=== PATIENT | female | born 1960 | race Caucasian/White ===

== ENCOUNTER 2016-08-25 16:35 | Emergency (ER) | payer OTHER ==
[~2016-08-25] VITALS: Ht 162.6 cm; Wt 96.3 kg
[~2016-08-25 16:35] MED LIST: CYCL-259 PO; DIAZ5TAB PO; EMPA1TAB3 PO; FAMO-79 PO; GABA300C10 PO; HYDR-3144 PO; HYDR-882 PO; HYDR2TAB13 PO; METF10002 PO; METF100P3 PO; METF850T2 PO; METH4TAB2 PO; METH750T87 PO; OMEP-110 PO; ONDA4TAB10 PO; ONDA4TAB7 PO; OXYC-229 PO; OXYC5TAB3 PO; PROM25TA10 PO; SITA100T PO; TIZA4TAB9 PO; WILL BRING LIST
[2016-08-25] MEDS ORDERED: SODIUM CHLORIDE 0.9% 1,000ML IVBOLUS ONE (17:00)
[2016-08-25 17:05] LABS: HEMOGLOBIN 14.6 g/dL (11.7-16.4)
[2016-08-25 17:15] LABS: ASPARTATE AMINO TRANSFERASE 6 U/L (15-37); BLOOD UREA NITROGEN 13 mg/dL (7-18)
[2016-08-25] MEDS ORDERED: OXYcodone/APAP 5/325MG TABLET ONE (17:19)
[2016-08-25 17:25] LABS: IS PT STATUS REG ER OR PRE ER? YES
[2016-08-25] MEDS ORDERED: PLEASE ENTER HEIGHT AND WEIGHT MC SCH (17:30)
[2016-08-25] MEDS ORDERED: OXYcodone/APAP 5/325MG TABLET PO ONE (17:30)
[2016-08-25] MEDS ORDERED: KETOROLAC 30 MG/1 ML ONE (18:11)
[2016-08-25] MEDS ORDERED: KETOROLAC 30 MG/1 ML IVPush ONE (18:30)
[2016-08-25 18:49] LABS: HCG UR OBC PASS
[2016-08-25 19:35] VITALS: BP 108/68
== END 2016-08-25 19:38 | disposition home or self-care (01) ==
LOC: ED 19:00
DX: G43.909 Migraine, unspecified, not intractable, without status migrainosus (principal); Z87.891 Personal history of nicotine dependence; J44.9 Chronic obstructive pulmonary disease, unspecified; E11.9 Type 2 diabetes mellitus without complications
CPT/HCPCS: 36415; 70450; 71010; 80053; 81003; 81025; 84443; 84484; 85025; 93005; 96361; 96374; 99285; J1885; J7030

== ENCOUNTER → 2016-11-25 | Outpatient (CLI) | payer OTHER ==
[~2016-11-25] MED LIST changes: -HYDR2TAB13 PO; +HYDR2TAB29 PO; +INSULIN; +LEVO25TA4 PO; +OBIN1000 PO
== END | disposition home or self-care (01) ==
LOC: CFH 07:08
PROVIDERS: ATTEND Family Medicine
DX: M50.121 Cervical disc disorder at C4-C5 level with radiculopathy (principal); M48.02 Spinal stenosis, cervical region; Z98.890 Other specified postprocedural states; Z98.1 Arthrodesis status
CPT/HCPCS: 72050; 72141

== ENCOUNTER → 2016-12-15 | Outpatient (CLI) | payer OTHER ==
[~2016-12-15] MED LIST changes: +FENTANYL PF 100 MCG/2ML ONE; +MIDAZOLAM 1 MG/ML, 5ML ONE
== END | disposition home or self-care (01) ==
LOC: RAD 10:18 → EDSTATUS 11:00
PROVIDERS: ATTEND Family Medicine
DX: G43.909 Migraine, unspecified, not intractable, without status migrainosus (principal); Z98.1 Arthrodesis status
CPT/HCPCS: 70544; 99156; 99157; J2250; J3010

== ENCOUNTER → 2017-02-17 | Outpatient (CLI) | payer MEDICARE ==
[~2017-02-17] MED LIST changes: -HYDR-3144 PO; +HYDR-3245 PO; -OXYC-229 PO; +OXYC-307 PO
== END | disposition home or self-care (01) ==
LOC: RAD 09:11
PROVIDERS: ATTEND Family Medicine
DX: M48.06 Spinal stenosis, lumbar region (principal); M51.26 Other intervertebral disc displacement, lumbar region; M47.896 Other spondylosis, lumbar region; M47.897 Other spondylosis, lumbosacral region; M71.20 Synovial cyst of popliteal space [Baker], unspecified knee; M79.604 Pain in right leg; Z91.81 History of falling
CPT/HCPCS: 72148; 73721; 99156; 99157; J2250; J3010

== ENCOUNTER 2017-02-27 14:04 | Emergency (ER) | payer MEDICARE ==
[~2017-02-27] VITALS: Ht 162.6 cm; Wt 80.8 kg
[~2017-02-27 14:04] MED LIST changes: -FENTANYL PF 100 MCG/2ML ONE; -MIDAZOLAM 1 MG/ML, 5ML ONE
[2017-02-27] MEDS ORDERED: SODIUM CHLORIDE 0.9% 1,000 ML IV ONE (14:22)
[2017-02-27] MEDS ORDERED: MORPHINE SULFATE 4 MG/ML, 1ML IVPush PRN (14:30)
[2017-02-27] MEDS ORDERED: ONDANSETRON 2MG/ML, 2ML IVPush ONE (14:30)
[2017-02-27] MEDS ORDERED: SODIUM CHLORIDE 0.9% 1,000ML IVBOLUS ONE (14:30)
[2017-02-27] MEDS ORDERED: FAMOTIDINE 20 MG/2 ML IVP ONE (15:00)
[2017-02-27] MEDS ORDERED: MORPHINE SULFATE 4 MG/ML, 1ML ONE (15:06)
[2017-02-27] MEDS ORDERED: FAMOTIDINE 20 MG/2 ML ONE (15:06)
[2017-02-27] MEDS ORDERED: ONDANSETRON 2MG/ML, 2ML ONE (15:06)
[2017-02-27 15:17] LABS: HEMATOCRIT 36.6 % (34.6-47.8); HEMOGLOBIN 12.3 g/dL (11.7-16.4); WHITE BLOOD COUNT 7.3 x10^3/uL (3.4-10)
[2017-02-27 15:19] LABS: PATH.CAST-FLAG NOT PRESENT; SPERM-FLAG NOT PRESENT; SRC-FLAG NOT PRESENT; XTAL-FLAG NOT PRESENT; YLC-FLAG NOT PRESENT
[2017-02-27 15:29] LABS: ASPARTATE AMINO TRANSFERASE 10 U/L (15-37); BLOOD UREA NITROGEN 8 mg/dL (7-18)
[2017-02-27 15:35] VITALS: BP 94/63
[2017-02-27] MEDS ORDERED: OMNIPAQUE 350 MG/ML, 100ML BOTTLE ONE (16:24)
== END 2017-02-27 17:12 | disposition home or self-care (01) ==
LOC: ED 14:30
DX: R10.84 Generalized abdominal pain (principal)
CPT/HCPCS: 36415; 71010; 74177; 80053; 81001; 83605; 83690; 85025; 85610; 87086; 96361; 96374; 96375; 99285; J2405; J7030; Q9967; S0028

== ENCOUNTER → 2017-04-07 | Outpatient (CLI) | payer MEDICARE ==
[~2017-04-07] MED LIST changes: +OMNIPAQUE 350 MG/ML, 100ML BOTTLE ONE
== END | disposition home or self-care (01) ==
LOC: CFH 14:16
PROVIDERS: ATTEND Specialist
DX: I25.10 Atherosclerotic heart disease of native coronary artery without angina pectoris (principal); M51.34 Other intervertebral disc degeneration, thoracic region; K76.0 Fatty (change of) liver, not elsewhere classified; D73.89 Other diseases of spleen; Z98.1 Arthrodesis status; C18.4 Malignant neoplasm of transverse colon
CPT/HCPCS: 71260; 74177; Q9967

== ENCOUNTER 2018-01-07 06:14 | Emergency (ER) | payer OTHER ==
[~2018-01-07] VITALS: Ht 165.1 cm; Wt 72.7 kg
[~2018-01-07 06:14] MED LIST changes: -OMNIPAQUE 350 MG/ML, 100ML BOTTLE ONE
[2018-01-07] MEDS ORDERED: ONDANSETRON 2MG/ML, 2ML ONE (06:41)
[2018-01-07] MEDS ORDERED: LORazepam 2 MG/ML, 1ML ONE (06:41)
[2018-01-07] MEDS ORDERED: SODIUM CHLORIDE FLUSH 10ML SYR IVF ONE (07:00)
[2018-01-07] MEDS ORDERED: LORazepam 2 MG/ML, 1ML IVPush ONE (07:00)
[2018-01-07] MEDS ORDERED: ONDANSETRON 2MG/ML, 2ML IVPush ONE (07:00)
[2018-01-07] MEDS ORDERED: KETOROLAC 30 MG/1 ML ONE (07:47)
[2018-01-07] MEDS ORDERED: KETOROLAC 30 MG/1 ML IVPush ONE (08:00)
[2018-01-07 08:11] VITALS: BP 119/80
== END 2018-01-07 08:27 | disposition other institution (70) ==
LOC: ED 07:09
DX: S16.1XXA Strain of muscle, fascia and tendon at neck level, initial encounter (principal); M54.12 Radiculopathy, cervical region; I10 Essential (primary) hypertension; M19.90 Unspecified osteoarthritis, unspecified site; J44.9 Chronic obstructive pulmonary disease, unspecified; E11.65 Type 2 diabetes mellitus with hyperglycemia; Z97.10 Presence of artificial limb (complete) (partial), unspecified; F17.200 Nicotine dependence, unspecified, uncomplicated; X58.XXXA Exposure to other specified factors, initial encounter; Y93.89 Activity, other specified; Y92.89 Other specified places as the place of occurrence of the external cause; Y99.0 Civilian activity done for income or pay
CPT/HCPCS: 72125; 73030; 96374; 96375; 99284; J1885; J2060; J2405

== ENCOUNTER → 2018-01-11 | Outpatient (CLI) | payer OTHER ==
[~2018-01-11] MED LIST changes: +FENTANYL PF 100 MCG/2ML ONE; +MIDAZOLAM 1 MG/ML, 5ML ONE
== END | disposition home or self-care (01) ==
LOC: RAD 06:41
PROVIDERS: ATTEND Family Medicine
DX: M43.22 Fusion of spine, cervical region (principal); M48.02 Spinal stenosis, cervical region; M89.9 Disorder of bone, unspecified; R60.9 Edema, unspecified; R90.82 White matter disease, unspecified; S80.11XA Contusion of right lower leg, initial encounter; X58.XXXA Exposure to other specified factors, initial encounter; Y93.89 Activity, other specified; Y92.89 Other specified places as the place of occurrence of the external cause; Y99.8 Other external cause status
CPT/HCPCS: 70551; 72141; 73718; 73721; 99156; 99157; J2250; J3010

== ENCOUNTER 2018-02-10 11:20 | Emergency (ER) | payer OTHER ==
[~2018-02-10] VITALS: Ht 165.1 cm; Wt 71.3 kg
[~2018-02-10 11:20] MED LIST changes: -FENTANYL PF 100 MCG/2ML ONE; +METF850T10 PO; -METF850T2 PO; -MIDAZOLAM 1 MG/ML, 5ML ONE
[2018-02-10] MEDS ORDERED: KETOROLAC 30 MG/1 ML IM ONE (12:00)
[2018-02-10] MEDS ORDERED: KETOROLAC 30 MG/1 ML ONE (12:06)
[2018-02-10] MEDS ORDERED: HYDROcodone/APAP 5/325 TABLET ONE (14:55)
[2018-02-10] MEDS ORDERED: HYDROcodone/APAP 5/325 TABLET PO ONE (15:00)
[2018-02-10 15:10] VITALS: BP 132/78
== END 2018-02-10 15:47 | disposition home or self-care (01) ==
LOC: ED 14:19
DX: S42.202A Unspecified fracture of upper end of left humerus, initial encounter for closed fracture (principal); I10 Essential (primary) hypertension; E11.65 Type 2 diabetes mellitus with hyperglycemia; G43.909 Migraine, unspecified, not intractable, without status migrainosus; J44.9 Chronic obstructive pulmonary disease, unspecified; F17.200 Nicotine dependence, unspecified, uncomplicated; V43.52XA Car driver injured in collision with other type car in traffic accident, initial encounter; Y93.89 Activity, other specified; Y92.89 Other specified places as the place of occurrence of the external cause; Y99.8 Other external cause status
CPT/HCPCS: 71045; 72050; 72072; 73030; 93005; 96372; 99284; J1885

== ENCOUNTER 2018-02-12 19:15 | Emergency (ER) | payer OTHER ==
[~2018-02-12] VITALS: Ht 165.1 cm; Wt 69.8 kg
[2018-02-12] MEDS ORDERED: KETOROLAC 30 MG/1 ML ONE (19:54)
[2018-02-12] MEDS ORDERED: KETOROLAC 30 MG/1 ML IM ONE (20:00)
[2018-02-12 21:03] VITALS: BP 127/72
== END 2018-02-12 21:05 | disposition home or self-care (01) ==
LOC: ED 20:28
DX: S39.012A Strain of muscle, fascia and tendon of lower back, initial encounter (principal); M54.12 Radiculopathy, cervical region; E11.9 Type 2 diabetes mellitus without complications; J44.9 Chronic obstructive pulmonary disease, unspecified; M19.90 Unspecified osteoarthritis, unspecified site; G43.909 Migraine, unspecified, not intractable, without status migrainosus; I10 Essential (primary) hypertension; X58.XXXA Exposure to other specified factors, initial encounter; Y93.89 Activity, other specified; Y99.8 Other external cause status; Y92.89 Other specified places as the place of occurrence of the external cause
CPT/HCPCS: 72125; 96372; 99284; J1885

== ENCOUNTER 2019-05-09 16:30 | Emergency (ER) | payer OTHER, MEDICARE ==
[~2019-05-09] VITALS: Ht 165.1 cm; Wt 79.0 kg
[~2019-05-09 16:30] MED LIST changes: +HYDR-3653 PO; -HYDR-882 PO
[2019-05-09 16:32] VITALS: BP 160/88
--- NOTE | 2019-05-09 17:45 | NUR ---
PT HERE WITH C/O NECK AND BACK PAIN, STATES SHE HAS BEEN WAITING 3 MONTHS TO GET INTO A [facility], SHE CANNOT HANDLE THE PAIN ANY LONGER. ERMD IN TO [facility]
[2019-05-09] MEDS ORDERED: DEXAMETHASONE 4 MG/ML, 1ML ONE (17:50)
[2019-05-09] MEDS ORDERED: DEXAMETHASONE 4 MG/ML, 1ML IM ONE (18:00)
--- NOTE | 2019-05-09 18:00 | NUR ---
PT MEDICATED PER JUL, WILL THEN DC
== END 2019-05-09 18:30 | disposition home or self-care (01) ==
LOC: ED 16:54
DX: M54.16 Radiculopathy, lumbar region (principal); M54.14 Radiculopathy, thoracic region; I10 Essential (primary) hypertension; E11.9 Type 2 diabetes mellitus without complications; J44.9 Chronic obstructive pulmonary disease, unspecified; Z90.710 Acquired absence of both cervix and uterus; F17.200 Nicotine dependence, unspecified, uncomplicated
CPT/HCPCS: 93005; 96372; 99283; J1100

== ENCOUNTER 2019-05-14 16:19 | Emergency (ER) | payer OTHER, MEDICARE ==
[~2019-05-14] VITALS: Ht 165.1 cm; Wt 80.0 kg
[2019-05-14 16:32] VITALS: BP 144/86
--- NOTE | 2019-05-14 17:57 | NUR ---
XRAY AT BEDSIDE
--- NOTE | 2019-05-14 18:57 | NUR ---
PROVIDED WITH BK
== END 2019-05-14 19:00 | disposition home or self-care (01) ==
LOC: ED 17:49
DX: S93.491A Sprain of other ligament of right ankle, initial encounter (principal); J44.9 Chronic obstructive pulmonary disease, unspecified; E11.65 Type 2 diabetes mellitus with hyperglycemia; G43.909 Migraine, unspecified, not intractable, without status migrainosus; I10 Essential (primary) hypertension; Z90.710 Acquired absence of both cervix and uterus; X50.1XXA Overexertion from prolonged static or awkward postures, initial encounter; Y93.89 Activity, other specified; Y92.009 Unspecified place in unspecified non-institutional (private) residence as the place of occurrence of the external cause; Y99.8 Other external cause status
CPT/HCPCS: 99283

== ENCOUNTER 2019-05-25 14:02 | Emergency (ER) | payer OTHER, MEDICARE ==
[~2019-05-25] VITALS: Ht 165.1 cm; Wt 78.4 kg
--- NOTE | 2019-05-25 14:37 | NUR ---
PA EXAMINING PT
[2019-05-25] MEDS ORDERED: DIAZEPAM 5 MG TABLET ONE (14:49)
[2019-05-25] MEDS ORDERED: KETOROLAC 30 MG/1 ML ONE (14:49)
--- NOTE | 2019-05-25 14:59 | NUR ---
MEDICATED NOTED ON MAR
[2019-05-25] MEDS ORDERED: KETOROLAC 30 MG/1 ML IM ONE (15:00)
[2019-05-25] MEDS ORDERED: DIAZEPAM 5 MG TABLET PO ONE (15:00)
[2019-05-25] MEDS ORDERED: HYDROmorphone 1 MG/ML, 1ML INJ IM ONE (15:30)
[2019-05-25] MEDS ORDERED: HYDROmorphone 1 MG/ML, 1ML INJ ONE (15:38)
[2019-05-25] MEDS ORDERED: ONDANSETRON ODT 4 MG ONE (15:41)
--- NOTE | 2019-05-25 15:45 | NUR ---
ADDITIONALLY MEDICATED NOTED ON JUL FOR CONTINUED BACK PAIN
[2019-05-25] MEDS ORDERED: ONDANSETRON ODT 4 MG PO ONE (16:00)
[2019-05-25 16:20] VITALS: BP 98/62
--- NOTE | 2019-05-25 16:21 | NUR ---
PAIN IMPROVED WITH ADDITIONAL MEDICATION. VS UPDATED, DISCHARGE GIVEN. AMBULATED TO DISCHARGE WINDOW WITHOUT ASSITANCE.
== END 2019-05-25 16:24 | disposition home or self-care (01) ==
LOC: ED 16:13
DX: S39.012A Strain of muscle, fascia and tendon of lower back, initial encounter (principal); S29.012A Strain of muscle and tendon of back wall of thorax, initial encounter; M51.36 Other intervertebral disc degeneration, lumbar region; J44.9 Chronic obstructive pulmonary disease, unspecified; E11.9 Type 2 diabetes mellitus without complications; I10 Essential (primary) hypertension; Z90.710 Acquired absence of both cervix and uterus; X58.XXXA Exposure to other specified factors, initial encounter; Y93.89 Activity, other specified; Y92.89 Other specified places as the place of occurrence of the external cause; Y99.8 Other external cause status
CPT/HCPCS: 72110; 96372; 99283; J1170; J1885; Q0162

== ENCOUNTER → 2019-07-10 | Outpatient (CLI) | payer OTHER, MEDICARE ==
[~2019-07-10] MED LIST changes: +FENTANYL PF 100 MCG/2ML ONE; +FLUMAZENIL 0.1 MG/1 ML, 5ML ONE; +MIDAZOLAM 1 MG/ML, 5ML ONE; +NALOXONE 1 MG/ML, 2ML ONE
[2019-07-10 08:23] LABS: MICROSCOPIC NOT IND
[2019-07-10 08:24] LABS: BASOPHILS # (AUTO) 0.03 x10^3/uL (0-0.1); BASOPHILS % (AUTO) 1 % (0-1); EOSINOPHILS # (AUTO) 0.11 x10^3/uL (0-0.4); EOSINOPHILS % (AUTO) 2 % (1-7); LYMPHOCYTES # (AUTO) 1.52 x10^3/uL (1-3.4); LYMPHOCYTES % (AUTO) 26 % (22-44); MD NO; MEAN CORPUSCULAR HEMOGLOBIN 28.5 pg (27.0-34.8); MEAN CORPUSCULAR HGB CONC 33.3 g/dL (32.4-35.8); MEAN CORPUSCULAR VOLUME 85.8 fL (80-100); MEAN PLATELET VOLUME 8.5 fL (7.4-10.4); MONOCYTES # (AUTO) 0.39 x10^3/uL (0.2-0.8); MONOCYTES % (AUTO) 7 % (2-9); NEUTROPHILS # (AUTO) 3.74 x10^3/uL (1.8-6.8); NEUTROPHILS % (AUTO) 65 % (42-75); PLATELET COUNT 268 x10^3/uL (130-400); RED BLOOD COUNT 5.45 x10^6/uL (3.82-5.3); RED CELL DISTRIBUTION WIDTH 15.1 % (9.6-15.2)
[2019-07-10 08:34] LABS: ALBUMIN 3.6 g/dL (3.4-5.0); ANION GAP 5 mmol/L (5-15); CALCIUM 8.8 mg/dL (8.5-10.1); CHLORIDE 106 mmol/L (98-107)
[2019-07-10 08:47] LABS: ALANINE AMINOTRANSFERASE 25 U/L (12-78); ALKALINE PHOSPHATASE 89 U/L (45-117); BILIRUBIN,TOTAL 1.2 mg/dL (0.2-1.0); CHOL/HDL RATIO 3.1; CHOLESTEROL, TOTAL 181 mg/dL (140-239); CREATININE 0.79 mg/dL (0.55-1.02); HDL CHOL % 33 % (28-40); HDL CHOLESTEROL (DIRECT) 59 mg/dL (40-60); LDL CHOLESTEROL,CALCULATED 107 mg/dL (54-169); LDL/HDL RATIO 1.8 (0.5-3.0); TOTAL PROTEIN 7.2 g/dL (6.4-8.2); TRIGLYCERIDES 75 mg/dL (50-200); VLDL CHOLESTEROL 15 mg/dL (0-25)
== END | disposition home or self-care (01) ==
LOC: RAD 07:57
PROVIDERS: ATTEND Nurse Practitioner
DX: S46.211A Strain of muscle, fascia and tendon of other parts of biceps, right arm, initial encounter (principal); M75.101 Unspecified rotator cuff tear or rupture of right shoulder, not specified as traumatic; M48.061 Spinal stenosis, lumbar region without neurogenic claudication; M47.24 Other spondylosis with radiculopathy, thoracic region; M48.062 Spinal stenosis, lumbar region with neurogenic claudication; E11.9 Type 2 diabetes mellitus without complications; E03.9 Hypothyroidism, unspecified; F17.210 Nicotine dependence, cigarettes, uncomplicated; Z98.890 Other specified postprocedural states; Z85.038 Personal history of other malignant neoplasm of large intestine; Z79.899 Other long term (current) drug therapy; Z79.4 Long term (current) use of insulin; X58.XXXA Exposure to other specified factors, initial encounter; Y93.89 Activity, other specified; Y92.89 Other specified places as the place of occurrence of the external cause; Y99.8 Other external cause status
CPT/HCPCS: 36415; 73221; 80053; 80061; 81003; 82043; 83036; 84443; 85025; 99156; 99157; J2250; J3010; J2310

== ENCOUNTER 2019-07-14 11:05 | Day surgery (SDC) | payer OTHER, MEDICARE ==
[~2019-07-14] VITALS: Ht 167.6 cm; Wt 79.4 kg
[~2019-07-14 11:05] MED LIST changes: -FENTANYL PF 100 MCG/2ML ONE; -FLUMAZENIL 0.1 MG/1 ML, 5ML ONE; -MIDAZOLAM 1 MG/ML, 5ML ONE; -NALOXONE 1 MG/ML, 2ML ONE
[2019-07-14 11:32] VITALS: BP 125/90
[2019-07-14] MEDS ORDERED: BUPR1PAT7 TD (11:35)
[2019-07-14] MEDS ORDERED: SUCCINYLCHOLINE 20 MG/ML, 10ML ONE (13:08)
[2019-07-14] MEDS ORDERED: PROPOFOL 10 MG/ML, 20ML ONE (13:08)
[2019-07-14] MEDS ORDERED: ROCURONIUM 10 MG/ML,10ML ONE (13:08)
[2019-07-14] MEDS ORDERED: OXYcodone 5 MG/5 ML ORAL.SOL UDC PO PRN (15:00)
[2019-07-14] MEDS ORDERED: FENTANYL PF 100 MCG/2ML IV PRN (15:00)
[2019-07-14] MEDS ORDERED: hydrALAzine 20 MG/ML, 1ML IV PRN (15:00)
[2019-07-14] MEDS ORDERED: HYDROmorphone 2 MG/ML, 1ML IVPush PRN (15:00)
[2019-07-14] MEDS ORDERED: EPHEDRINE 50 MG/ML, 1ML IVPush PRN (15:00)
[2019-07-14] MEDS ORDERED: LORazepam 2 MG/ML, 1ML IVPush PRN (15:00)
[2019-07-14] MEDS ORDERED: ONDANSETRON 2MG/ML, 2ML IV PRN (15:00)
[2019-07-14] MEDS ORDERED: HALOPERIDOL 5 MG/ML IV PRN (15:00)
[2019-07-14] MEDS ORDERED: MIDAZOLAM 1 MG/ML, 2ML IV PRN (15:00)
[2019-07-14] MEDS ORDERED: ONDANSETRON ODT 8 MG PO PRN (15:00)
[2019-07-14] MEDS ORDERED: DIAZEPAM 5 MG/ML, 2ML IVPush PRN (15:00)
[2019-07-14] MEDS ORDERED: LABETALOL 5MG/ML, 20ML IV PRN (15:00)
[2019-07-14] MEDS ORDERED: ALBUTEROL SULFATE 2.5 MG/3 ML NPPB PRN (15:00)
[2019-07-14] MEDS ORDERED: ACETAMINOPHEN 325 MG TABLET PO PRN (15:00)
[2019-07-14] MEDS ORDERED: MEPERIDINE/PF 25MG/ML,1ML IVPush PRN (15:00)
[2019-07-14] MEDS ORDERED: DIPHENHYDRAMINE 50 MG/ML, 1ML IVPush PRN (15:00)
[2019-07-14] MEDS ORDERED: ONDANSETRON 2MG/ML, 2ML ONE (15:13)
[2019-07-14] MEDS ORDERED: HALOPERIDOL 5 MG/ML ONE (15:13)
== END 2019-07-14 15:55 | disposition home or self-care (01) ==
LOC: OUT 11:05 → EDSTATUS 14:15 → OUT 15:55
PROVIDERS: ATTEND Nurse Practitioner
DX: M47.24 Other spondylosis with radiculopathy, thoracic region (principal); M48.04 Spinal stenosis, thoracic region; M47.26 Other spondylosis with radiculopathy, lumbar region; M48.062 Spinal stenosis, lumbar region with neurogenic claudication; E11.9 Type 2 diabetes mellitus without complications; F17.210 Nicotine dependence, cigarettes, uncomplicated; Z79.890 Hormone replacement therapy; Z79.891 Long term (current) use of opiate analgesic; Z79.899 Other long term (current) drug therapy
CPT/HCPCS: 72146; 72148; 73221; 82962; J0330; J2405; J2704

== ENCOUNTER 2019-07-20 15:04 | Day surgery (SDC) | payer OTHER, MEDICARE ==
[~2019-07-20] VITALS: Ht 167.6 cm; Wt 78.4 kg
[2019-07-20 15:02] VITALS: BP 152/89
[~2019-07-20 15:04] MED LIST changes: +BUPR1PAT7 TD
[2019-07-20] MEDS ORDERED: methylPREDNISolone *ACETATE* 40 MG/ML ONE (15:10)
[2019-07-20] MEDS ORDERED: BUPIVACAINE/PF 0.5% ONE (15:10)
[2019-07-20] MEDS ORDERED: OXYC5CAP2 PO (15:28)
[2019-07-20] MEDS ORDERED: EMPA1TAB3 PO (15:28)
[2019-07-20] MEDS ORDERED: LACTATED RINGERS 1,000 ML IV ONE (15:52)
[2019-07-20] MEDS ORDERED: FENTANYL PF 100 MCG/2ML ONE (16:11)
[2019-07-20] MEDS ORDERED: MIDAZOLAM 1 MG/ML, 2ML ONE ×2 (16:12→16:38)
[2019-07-20] MEDS ORDERED: FENTANYL PF 100 MCG/2ML IV PRN (17:00)
[2019-07-20] MEDS ORDERED: MIDAZOLAM 1 MG/ML, 2ML IV PRN (17:00)
[2019-07-20] MEDS ORDERED: PROMETHAZINE 25 MG/ML, 1ML IV PRN (17:00)
[2019-07-20] MEDS ORDERED: OXYcodone 5 MG/5 ML ORAL.SOL UDC PO PRN (17:00)
[2019-07-20] MEDS ORDERED: ACETAMINOPHEN 325 MG TABLET PO PRN (17:00)
[2019-07-20] MEDS ORDERED: PROPOFOL 10 MG/ML, 20ML ONE (17:07)
[2019-07-20] MEDS ORDERED: ONDANSETRON 2MG/ML, 2ML ONE (17:07)
[2019-07-20] MEDS ORDERED: CEFAZOLIN 1,000 MG ONE (17:07)
[2019-07-20] MEDS ORDERED: DEXAMETHASONE 4 MG/ML, 1ML ONE (17:07)
[2019-07-20] MEDS ORDERED: OXYcodone 5 MG/5 ML ORAL.SOL UDC ONE (17:43)
== END 2019-07-20 19:26 | disposition home or self-care (01) ==
LOC: OR 15:04 → 4NE 18:17 → OR 19:26
PROVIDERS: ATTEND Orthopaedic Surgery Hand Surgery
DX: M65.331 Trigger finger, right middle finger (principal); M65.312 Trigger thumb, left thumb; E11.9 Type 2 diabetes mellitus without complications; F17.210 Nicotine dependence, cigarettes, uncomplicated; Z85.038 Personal history of other malignant neoplasm of large intestine; Z88.8 Allergy status to other drugs, medicaments and biological substances; Z79.84 Long term (current) use of oral hypoglycemic drugs; Z79.899 Other long term (current) drug therapy
CPT/HCPCS: 26055; 82962; J0690; J1030; J1100; J2250; J2405; J2704; J3010; J7120; G0378

== ENCOUNTER 2019-08-24 19:35 | Emergency (ER) | payer OTHER, MEDICARE ==
[~2019-08-24] VITALS: Ht 165.1 cm; Wt 76.4 kg
[~2019-08-24 19:35] MED LIST changes: +OXYC5CAP2 PO
[2019-08-24 19:39] VITALS: BP 138/95
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
[2019-08-24] MEDS ORDERED: SODIUM CHLORIDE 0.9% 1,000ML IVBOLUS ONE ×2 (20:30→21:30)
[2019-08-24] MEDS ORDERED: SODIUM CHLORIDE FLUSH 10ML SYR IVF ONE (20:30)
--- NOTE | 2019-08-24 20:46 | NUR ---
LAB AT BEDSIDE
[2019-08-24 21:01] LABS: PH, VENOUS 7.364 pH (7.320-7.420)
[2019-08-24 21:02] LABS: BASOPHILS # (AUTO) 0.03 x10^3/uL (0-0.1); BASOPHILS % (AUTO) 0 % (0-1); EOSINOPHILS # (AUTO) 0.03 x10^3/uL (0-0.4); EOSINOPHILS % (AUTO) 0 % (1-7); LYMPHOCYTES % (AUTO) 13 % (22-44); MD NO; MEAN CORPUSCULAR HEMOGLOBIN 28.7 pg (27.0-34.8); MEAN CORPUSCULAR HGB CONC 33.4 g/dL (32.4-35.8); MEAN PLATELET VOLUME 9.6 fL (7.4-10.4); MONOCYTES # (AUTO) 0.56 x10^3/uL (0.2-0.8); MONOCYTES % (AUTO) 6 % (2-9); NEUTROPHILS # (AUTO) 7.92 x10^3/uL (1.8-6.8); NEUTROPHILS % (AUTO) 80 % (42-75); PLATELET COUNT 256 x10^3/uL (130-400); RED BLOOD COUNT 5.05 x10^6/uL (3.82-5.3); RED CELL DISTRIBUTION WIDTH 14.4 % (9.6-15.2)
[2019-08-24 21:13] LABS: ALBUMIN 3.1 g/dL (3.4-5.0); ANION GAP 7 mmol/L (5-15); CALCIUM 8.6 mg/dL (8.5-10.1); CHLORIDE 106 mmol/L (98-107); CREATININE 0.73 mg/dL (0.55-1.02)
--- NOTE | 2019-08-24 21:20 | NUR ---
REPORT OF PT FROM VÍCTOR GARRIDO. ALL QUESTIONS ANSWERED. ASSUMING CARE OF PT AT THIS TIME. 2ND LITER OF FLUID HUNG PER JUL.
[2019-08-24 21:35] LABS: ACETONE, SERUM Negative (Negative)
[2019-08-24] MEDS ORDERED: POTASSIUM CHLORIDE 10% 40 MEQ/30 ML UDC PO ONE (22:00)
[2019-08-24] MEDS ORDERED: POTASSIUM CHLORIDE 20 MEQ TAB.ER.PRT ONE (22:05)
--- NOTE | 2019-08-24 22:11 | NUR ---
PT MEDICATED PER MAR.
[2019-08-24] MEDS ORDERED: INSULIN REGULAR 100 UNITS/ML, 3ML VIAL SQ-INSULIN ONE (22:30)
[2019-08-24] MEDS ORDERED: POTASSIUM CHLORIDE 20 MEQ TAB.ER.PRT PO ONE (22:30)
[2019-08-24] MEDS ORDERED: INSULIN SINGLE DOSE, ER ONE (23:15)
--- NOTE | 2019-08-24 23:56 | NUR ---
PT D/C WITH D/C SUMMARY AND SCRIPTS. ALL QUESTIONS ANSWERED. PT AMBULATES TO REGISTRATION DESK WITH STEADY GAIT FOR D/C HOME. PT IV D/C WITH TIP INTACT. PT DENIES ANY OTHER NEEDS PERTAINING TO THIS VISIT.
== END 2019-08-24 23:59 | disposition home or self-care (01) ==
LOC: ED 21:08
DX: E11.65 Type 2 diabetes mellitus with hyperglycemia (principal); R68.2 Dry mouth, unspecified; I10 Essential (primary) hypertension; J44.9 Chronic obstructive pulmonary disease, unspecified; M19.90 Unspecified osteoarthritis, unspecified site; Z90.710 Acquired absence of both cervix and uterus; F17.200 Nicotine dependence, unspecified, uncomplicated
CPT/HCPCS: 36415; 80048; 82010; 82040; 82803; 82962; 85025; 96360; 96361; 96372; 99283; J7030; J1815

== ENCOUNTER 2019-08-26 23:07 | Emergency (ER) | payer MEDICARE, OTHER ==
[~2019-08-26] VITALS: Ht 165.1 cm; Wt 77.9 kg
[2019-08-26 23:17] VITALS: BP 138/92
[2019-08-27] MEDS ORDERED: SODIUM CHLORIDE FLUSH 10ML SYR IVF ONE
[2019-08-27 00:41] LABS: ALBUMIN 3.3 g/dL (3.4-5.0); ANION GAP 6 mmol/L (5-15); CALCIUM 8.7 mg/dL (8.5-10.1); CHLORIDE 107 mmol/L (98-107); CREATININE 0.69 mg/dL (0.55-1.02)
[2019-08-27] MEDS ORDERED: SODIUM CHLORIDE 0.9% 1,000ML IVBOLUS ONE ×2 (01:00)
[2019-08-27] MEDS ORDERED: INSULIN REGULAR 100 UNITS/ML, 3ML VIAL SQ-INSULIN ONE (02:30)
[2019-08-27] MEDS ORDERED: INSULIN LISPRO SINGLE DOSE, ER SQ-INSULIN ONE (02:30)
== END 2019-08-27 03:34 | disposition home or self-care (01) ==
LOC: ED 23:50
DX: E11.65 Type 2 diabetes mellitus with hyperglycemia (principal); F17.200 Nicotine dependence, unspecified, uncomplicated
CPT/HCPCS: 36415; 70360; 70490; 80048; 82040; 82962; 96360; 99285; J7030

== ENCOUNTER 2019-12-19 09:24 | Outpatient (CLI) | payer MEDICARE ==
[2019-12-19] MEDS ORDERED: OMNIPAQUE 350 MG/ML, 100ML BOTTLE ONE (16:16)
== END 2019-12-19 23:59 | disposition home or self-care (01) ==
LOC: CFH 09:24
PROVIDERS: ATTEND Specialist
DX: C18.4 Malignant neoplasm of transverse colon (principal); R59.1 Generalized enlarged lymph nodes
CPT/HCPCS: 71260; 74177; 82565; Q9967

== ENCOUNTER 2019-12-29 06:16 | Day surgery (SDC) | payer MEDICARE ==
[~2019-12-29] VITALS: Ht 165.1 cm; Wt 77.1 kg
[2019-12-29] MEDS ORDERED: SODIUM CHLORIDE 0.9% 1,000 ML IV SCH (07:13)
[2019-12-29 07:34] VITALS: BP 129/89
== END 2019-12-29 09:15 | disposition home or self-care (01) ==
LOC: OUT 06:16
PROVIDERS: ATTEND Specialist
DX: R59.1 Generalized enlarged lymph nodes (principal); C18.4 Malignant neoplasm of transverse colon; E11.9 Type 2 diabetes mellitus without complications; I10 Essential (primary) hypertension; F32.9 Major depressive disorder, single episode, unspecified; F17.210 Nicotine dependence, cigarettes, uncomplicated; E66.01 Morbid (severe) obesity due to excess calories; Z88.8 Allergy status to other drugs, medicaments and biological substances; Z90.49 Acquired absence of other specified parts of digestive tract; Z72.89 Other problems related to lifestyle; Z90.710 Acquired absence of both cervix and uterus; Z98.890 Other specified postprocedural states; Z79.899 Other long term (current) drug therapy; Z68.28 Body mass index [BMI] 28.0-28.9, adult
CPT/HCPCS: 38505; 77012

== ENCOUNTER → 2020-01-02 | Outpatient (CLI) | payer MEDICARE ==
[2020-01-02 12:08] LABS: MICROSCOPIC NOT IND
[2020-01-02 12:14] LABS: INTERNATIONAL NORMALIZED RATIO 0.93 (0.93-1.1); PROTHROMBIN TIME 9.6 Seconds (9.6-11.5)
[2020-01-02 12:15] LABS: BASOPHILS # (AUTO) 0.05 x10^3/uL (0-0.1); BASOPHILS % (AUTO) 1 % (0-1); EOSINOPHILS # (AUTO) 0.03 x10^3/uL (0-0.4); EOSINOPHILS % (AUTO) 0 % (1-7); LYMPHOCYTES # (AUTO) 1.07 x10^3/uL (1-3.4); LYMPHOCYTES % (AUTO) 11 % (22-44); MD NO; MEAN CORPUSCULAR HEMOGLOBIN 27.6 pg (27.0-34.8); MEAN CORPUSCULAR HGB CONC 32.4 g/dL (32.4-35.8); MEAN CORPUSCULAR VOLUME 85.2 fL (80-100); MEAN PLATELET VOLUME 9.5 fL (7.4-10.4); MONOCYTES # (AUTO) 0.53 x10^3/uL (0.2-0.8); MONOCYTES % (AUTO) 5 % (2-9); NEUTROPHILS # (AUTO) 8.23 x10^3/uL (1.8-6.8); NEUTROPHILS % (AUTO) 83 % (42-75); PLATELET COUNT 330 x10^3/uL (130-400); RED BLOOD COUNT 5.59 x10^6/uL (3.82-5.3); RED CELL DISTRIBUTION WIDTH 13.7 % (9.6-15.2)
[2020-01-02 12:18] LABS: CHLORIDE 107 mmol/L (98-107)
[2020-01-02 12:41] LABS: ALANINE AMINOTRANSFERASE 23 U/L (12-78); ALBUMIN 4.1 g/dL (3.4-5.0); ALKALINE PHOSPHATASE 87 U/L (45-117); ANION GAP 5 mmol/L (5-15); CALCIUM 9.7 mg/dL (8.5-10.1); CREATININE 0.76 mg/dL (0.55-1.02); TOTAL PROTEIN 8.3 g/dL (6.4-8.2)
== END | disposition home or self-care (01) ==
LOC: STAR 10:36
PROVIDERS: ATTEND Neurological Surgery
DX: Z01.810 Encounter for preprocedural cardiovascular examination (principal); Z01.811 Encounter for preprocedural respiratory examination; Z01.812 Encounter for preprocedural laboratory examination; M48.02 Spinal stenosis, cervical region; M47.892 Other spondylosis, cervical region; R79.1 Abnormal coagulation profile; R94.31 Abnormal electrocardiogram [ECG] [EKG]; R82.90 Unspecified abnormal findings in urine; M47.812 Spondylosis without myelopathy or radiculopathy, cervical region; E11.9 Type 2 diabetes mellitus without complications; E03.9 Hypothyroidism, unspecified
CPT/HCPCS: 36415; 71046; 72050; 80053; 81003; 85025; 85610; 85730; 93005

== ENCOUNTER 2020-01-17 07:15 | Day surgery (SDC) | payer MEDICARE ==
[~2020-01-17] VITALS: Ht 165.1 cm; Wt 75.0 kg
[2020-01-17] MEDS ORDERED: CHLORHEXIDINE 15 ML UDC MM STA (07:58)
[2020-01-17 08:02] VITALS: BP 122/88
[2020-01-17] MEDS ORDERED: CHLORHEXIDINE 15 ML UDC ONE (08:04)
[2020-01-17] MEDS ORDERED: LACTATED RINGERS 1,000 ML IV ONE (08:05)
[2020-01-17] MEDS ORDERED: GLIPIZIDE (08:09)
[2020-01-17] MEDS ORDERED: PROPOFOL 10 MG/ML, 100ML IV ONE (08:29)
[2020-01-17] MEDS ORDERED: MIDAZOLAM 1 MG/ML, 2ML ONE (08:47)
[2020-01-17] MEDS ORDERED: DIAZEPAM 5 MG/ML, 2ML IVPush PRN (09:00)
[2020-01-17] MEDS ORDERED: EPHEDRINE 50 MG/ML, 1ML IVPush PRN (09:00)
[2020-01-17] MEDS ORDERED: PROMETHAZINE 12.5 MG SUPP PR PRN (09:00)
[2020-01-17] MEDS ORDERED: ALBUTEROL SULFATE 2.5 MG/3 ML NPPB PRN (09:00)
[2020-01-17] MEDS ORDERED: PROMETHAZINE 25 MG/ML, 1ML IVPush PRN (09:00)
[2020-01-17] MEDS ORDERED: LABETALOL 5MG/ML, 20ML IV PRN (09:00)
[2020-01-17] MEDS ORDERED: MEPERIDINE/PF 25MG/0.5ML IVPush PRN (09:00)
[2020-01-17] MEDS ORDERED: ONDANSETRON 2MG/ML, 2ML IVPush PRN (09:00)
[2020-01-17] MEDS ORDERED: hydrALAzine 20 MG/ML, 1ML IV PRN (09:00)
[2020-01-17] MEDS ORDERED: FENTANYL PF 100 MCG/2ML IV PRN (09:00)
[2020-01-17] MEDS ORDERED: HYDROmorphone 1 MG/ML, 1ML INJ IVPush PRN (09:00)
[2020-01-17] MEDS ORDERED: MIDAZOLAM 1 MG/ML, 2ML IV PRN (09:00)
[2020-01-17] MEDS ORDERED: OXYcodone 5 MG/5 ML ORAL.SOL UDC PO PRN (09:00)
[2020-01-17] MEDS ORDERED: DIPHENHYDRAMINE 50 MG/ML, 1ML IVPush PRN ×2 (09:00)
[2020-01-17] MEDS ORDERED: HYDROmorphone 1 MG/ML, 1ML INJ ONE (09:28)
== END 2020-01-17 10:30 | disposition home or self-care (01) ==
LOC: OUT 07:15
PROVIDERS: ATTEND Internal Medicine Gastroenterology
DX: R93.5 Abnormal findings on diagnostic imaging of other abdominal regions, including retroperitoneum (principal); Z20.828 Contact with and (suspected) exposure to other viral communicable diseases; C77.2 Secondary and unspecified malignant neoplasm of intra-abdominal lymph nodes; K29.70 Gastritis, unspecified, without bleeding; E03.9 Hypothyroidism, unspecified; M06.9 Rheumatoid arthritis, unspecified; Z85.038 Personal history of other malignant neoplasm of large intestine; Z88.8 Allergy status to other drugs, medicaments and biological substances; Z90.710 Acquired absence of both cervix and uterus; Z90.49 Acquired absence of other specified parts of digestive tract; Z98.1 Arthrodesis status; Z98.84 Bariatric surgery status
CPT/HCPCS: 43239; 43242; 82962; 87635; 88172; 88173; 88305; 88307; 88341; 88342; J1170; J2250; J2704; J7120

== ENCOUNTER 2020-03-19 16:50 | Emergency (ER) | payer MEDICARE, MEDICAID ==
[~2020-03-19] VITALS: Ht 165.1 cm; Wt 76.1 kg
[~2020-03-19 16:50] MED LIST changes: +GLIPIZIDE
[2020-03-19] MEDS ORDERED: ASPIRIN 81 MG TABLET CHEW PO ONE (17:30)
[2020-03-19] MEDS ORDERED: KETOROLAC 30 MG/1 ML IVPush ONE (18:00)
[2020-03-19 18:25] LABS: BASOPHILS % (AUTO) 1 % (0-1); EOSINOPHILS % (AUTO) 1 % (1-7); LYMPHOCYTES % (AUTO) 21 % (22-44); MEAN CORPUSCULAR HEMOGLOBIN 27.3 pg (27.0-34.8); MEAN CORPUSCULAR HGB CONC 33.1 g/dL (32.4-35.8); MEAN PLATELET VOLUME 8.3 fL (7.4-10.4); MONOCYTES % (AUTO) 7 % (2-9); NEUTROPHILS % (AUTO) 70 % (42-75); PLATELET COUNT 285 x10^3/uL (130-400); RED BLOOD COUNT 5.32 x10^6/uL (3.82-5.3); RED CELL DISTRIBUTION WIDTH 15.3 % (9.6-15.2)
[2020-03-19 18:30] LABS: ALBUMIN 3.5 g/dL (3.4-5.0); ANION GAP 5 mmol/L (5-15); CALCIUM 9.7 mg/dL (8.5-10.1); CHLORIDE 108 mmol/L (98-107); CREATININE 0.67 mg/dL (0.55-1.02)
[2020-03-19 18:34] LABS: ALANINE AMINOTRANSFERASE 12 U/L (12-78); ALKALINE PHOSPHATASE 82 U/L (45-117); BILIRUBIN,TOTAL 1.1 mg/dL (0.2-1.0); TOTAL PROTEIN 7.1 g/dL (6.4-8.2); TROPONIN I < 0.015 ng/mL (0.000-0.045)
[2020-03-19 18:35] LABS: MD NO
[2020-03-19] MEDS ORDERED: HYDROmorphone 1 MG/ML, 1ML INJ ONE (18:58)
[2020-03-19] MEDS ORDERED: LORazepam 2 MG/ML, 1ML ONE (18:58)
[2020-03-19] MEDS ORDERED: LORazepam 2 MG/ML, 1ML IVPush ONE (19:00)
[2020-03-19] MEDS ORDERED: HYDROmorphone 1 MG/ML, 1ML INJ IV ONE (19:00)
--- NOTE | 2020-03-19 19:05 | NUR ---
BEDSIDE REPORT FROM NESSA RENEE.
--- NOTE | 2020-03-19 19:07 | NUR ---
PT TAKEN TO CT BYUT RTD 2/2 INCREASED ANXIETY AND PAIN. DISCUSSED WITH DR RAY AND NEW ORDERS REC'D. PT MED NOTED. CT INFORNMED. 2L NC PLACED.
[2020-03-19] MEDS ORDERED: OMNIPAQUE 350 MG/ML, 75ML BOTTLE ONE (19:41)
[2020-03-19 20:10] VITALS: BP 107/73
== END 2020-03-19 21:30 | disposition home or self-care (01) ==
LOC: ED 18:13
DX: R07.89 Other chest pain (principal); R06.00 Dyspnea, unspecified; C18.9 Malignant neoplasm of colon, unspecified; R94.31 Abnormal electrocardiogram [ECG] [EKG]; I10 Essential (primary) hypertension; E11.65 Type 2 diabetes mellitus with hyperglycemia; G43.909 Migraine, unspecified, not intractable, without status migrainosus; J44.9 Chronic obstructive pulmonary disease, unspecified; Z51.11 Encounter for antineoplastic chemotherapy; Z90.710 Acquired absence of both cervix and uterus; Z87.891 Personal history of nicotine dependence
CPT/HCPCS: 36415; 71045; 71275; 80053; 83690; 83880; 84484; 85025; 93005; 96374; 96375; 99285; J1170; J2060; Q9967

== ENCOUNTER 2020-05-08 09:28 | Day surgery (SDC) | payer MEDICARE, MEDICAID ==
[~2020-05-08] VITALS: Ht 162.6 cm; Wt 77.2 kg
[~2020-05-08 09:28] MED LIST changes: +ACID1TAB7 PO; +ALPR0.5T PO; +BUTA-177 PO; +MORP10SO PO; +ONDA-89 PO; +OXYC20TA59 PO; +PANT40TA6 PO; +PROC10TA78 PO; +SACC250C4 PEG; +SUCR1ORA5 PO; +VANC1VIA3 PO
[2020-05-08 10:19] VITALS: BP 133/85
[2020-05-08] MEDS ORDERED: CEFAZOLIN PMX 1GM/50ML 50 ML ONE (10:30)
[2020-05-08] MEDS ORDERED: SODIUM CHLORIDE 0.9% 1,000 ML IV SCH (10:30)
[2020-05-08] MEDS ORDERED: CEFAZOLIN PMX 1GM/50ML 50 ML IV ONE (10:30)
[2020-05-08] MEDS ORDERED: LIDOCAINE 1%, 20ML ONE (11:10)
[2020-05-08] MEDS ORDERED: FLUMAZENIL 0.1 MG/1 ML, 5ML ONE (11:29)
[2020-05-08] MEDS ORDERED: MIDAZOLAM 1 MG/ML, 5ML ONE ×2 (11:29)
[2020-05-08] MEDS ORDERED: NALOXONE 1 MG/ML, 2ML ONE (11:29)
[2020-05-08] MEDS ORDERED: FENTANYL PF 100 MCG/2ML ONE (11:29)
== END 2020-05-08 13:40 | disposition home or self-care (01) ==
LOC: OUT 09:28
PROVIDERS: ATTEND Surgery
DX: Z45.2 Encounter for adjustment and management of vascular access device (principal); Z88.8 Allergy status to other drugs, medicaments and biological substances; Z20.828 Contact with and (suspected) exposure to other viral communicable diseases; Z79.899 Other long term (current) drug therapy; Z91.048 Other nonmedicinal substance allergy status; Z72.89 Other problems related to lifestyle; Z87.891 Personal history of nicotine dependence; Z82.49 Family history of ischemic heart disease and other diseases of the circulatory system; Z98.890 Other specified postprocedural states
CPT/HCPCS: 36590; 77001; 99156; 99157; J0690; J2250; J3010; J7030; U0003; J1642; J2310

== ENCOUNTER 2020-05-20 08:18 | Outpatient (CLI) | payer MEDICARE, MEDICAID ==
[2020-05-23] MEDS ORDERED: ONDA8TAB18 PO (09:41)
[2020-05-23] MEDS ORDERED: PROM12.57 PO (09:42)
== END 2020-05-20 23:59 | disposition home or self-care (01) ==
LOC: RAD 08:18
PROVIDERS: ATTEND Specialist
DX: C18.4 Malignant neoplasm of transverse colon (principal)
CPT/HCPCS: 36573; C1751

== ENCOUNTER → 2020-07-08 | Outpatient (CLI) | payer MEDICARE, MEDICAID ==
[~2020-07-08] MED LIST changes: -CYCL-259 PO; +CYCL10TA2 PO; -HYDR-3245 PO; +HYDR1TAB53 PO; +OMNIPAQUE 350 MG/ML, 100ML BOTTLE ONE; +ONDA8TAB18 PO; -OXYC-307 PO; +OXYC-380 PO; -OXYC5TAB3 PO; +OXYC5TAB98 PO; +PROM12.57 PO
== END | disposition home or self-care (01) ==
LOC: RAD 16:34
PROVIDERS: ATTEND Orthopaedic Surgery
DX: C18.4 Malignant neoplasm of transverse colon (principal); D18.09 Hemangioma of other sites; M22.41 Chondromalacia patellae, right knee; N83.201 Unspecified ovarian cyst, right side; G62.2 Polyneuropathy due to other toxic agents; M25.561 Pain in right knee; M25.461 Effusion, right knee; Q89.09 Congenital malformations of spleen; Z79.899 Other long term (current) drug therapy
CPT/HCPCS: 71260; 73721; 74177; Q9967

== ENCOUNTER 2020-09-08 12:18 | Emergency (ER) | payer MEDICARE, MEDICAID ==
[~2020-09-08] VITALS: Ht 165.1 cm; Wt 79.3 kg
[~2020-09-08 12:18] MED LIST changes: -OMNIPAQUE 350 MG/ML, 100ML BOTTLE ONE
--- NOTE | 2020-09-08 12:32 | NUR ---
PATIENT FELL BIKING THURDAY AT 1 PM AND PAIN TO RIGHT KNEE LOWER LEG EVER SINCE. PATIENT CAN WALK WITH LIMP. SHE'S BEEN ELEVATING.
[2020-09-08] MEDS ORDERED: OXYcodone IR 5MG TABLET PO ONE (13:00)
--- NOTE | 2020-09-08 13:09 | NUR ---
patient in xray.
[2020-09-08] MEDS ORDERED: OXYcodone IR 5MG TABLET ONE (13:14)
--- NOTE | 2020-09-08 13:19 | NUR ---
patient requesting zofran, states she takes it daily (3 types) but doesn't have it with her. let MD know she is requesting anti nausea medications.
[2020-09-08] MEDS ORDERED: ONDANSETRON ODT 4 MG PO ONE (13:30)
[2020-09-08] MEDS ORDERED: ONDANSETRON ODT 4 MG ONE (13:58)
[2020-09-08 13:59] VITALS: BP 99/62
--- NOTE | 2020-09-08 14:01 | NUR ---
patient has spouse picking up, instructed not to drive. patient feels improved. brielle on leg.
== END 2020-09-08 14:03 | disposition home or self-care (01) ==
LOC: ED 13:50
DX: S83.91XA Sprain of unspecified site of right knee, initial encounter (principal); S70.01XA Contusion of right hip, initial encounter; I10 Essential (primary) hypertension; E11.9 Type 2 diabetes mellitus without complications; J44.9 Chronic obstructive pulmonary disease, unspecified; Z90.710 Acquired absence of both cervix and uterus; W18.30XA Fall on same level, unspecified, initial encounter; Y93.89 Activity, other specified; Y92.89 Other specified places as the place of occurrence of the external cause; Y99.8 Other external cause status
CPT/HCPCS: 73502; 73564; 99284; Q0162

== ENCOUNTER 2020-10-21 17:36 | Emergency (ER) | payer MEDICARE, MEDICAID ==
[~2020-10-21] VITALS: Ht 165.1 cm; Wt 75.7 kg
[~2020-10-21 17:36] MED LIST changes: -VANC1VIA3 PO; +VANC1VIA36 PO
[2020-10-21 17:40] VITALS: BP 123/79
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
--- NOTE | 2020-10-21 18:30 | NUR ---
PT RESTING ON GURNEY, WATCHING TV. COMFORT MEASURES PROVIDED. CALL LIGHT WITHIN REACH. BELINDA
--- NOTE | 2020-10-21 18:46 | NUR ---
REPORT TO VÍCTOR BAR
--- NOTE | 2020-10-21 18:48 | NUR ---
REPORT FROM DEB[facility]A ASSUMED CARE OF PT
[2020-10-21] MEDS ORDERED: OXYcodone/APAP 5/325MG TABLET ONE (19:09)
--- NOTE | 2020-10-21 19:18 | NUR ---
MEDICATED PER MAR PT IN NAD
[2020-10-21] MEDS ORDERED: OXYcodone/APAP 5/325MG TABLET PO ONE (19:30)
[2020-10-21] MEDS ORDERED: OXYcodone 5 MG/5 ML ORAL.SOL UDC PO ONE (19:30)
--- NOTE | 2020-10-21 20:38 | NUR ---
Patient/Caregiver given discharge instructions and they have confirmed that they understand the instructions. Patient ambulatory with steady gait.
== END 2020-10-21 20:39 | disposition home or self-care (01) ==
LOC: ED 18:29
DX: S43.402A Unspecified sprain of left shoulder joint, initial encounter (principal); S63.502A Unspecified sprain of left wrist, initial encounter; I10 Essential (primary) hypertension; E11.9 Type 2 diabetes mellitus without complications; J44.9 Chronic obstructive pulmonary disease, unspecified; G43.909 Migraine, unspecified, not intractable, without status migrainosus; M19.90 Unspecified osteoarthritis, unspecified site; V47.5XXA Car driver injured in collision with fixed or stationary object in traffic accident, initial encounter; Y93.89 Activity, other specified; Y92.410 Unspecified street and highway as the place of occurrence of the external cause; Y99.8 Other external cause status
CPT/HCPCS: 29125; 99284

== ENCOUNTER 2020-10-28 15:08 | Emergency (ER) | payer MEDICARE, MEDICAID ==
[~2020-10-28] VITALS: Ht 165.1 cm; Wt 79.9 kg
[2020-10-28] MEDS ORDERED: SODIUM CHLORIDE 0.9% 1,000ML IVBOLUS ONE ×2 (15:30→16:30)
[2020-10-28] MEDS ORDERED: ONDANSETRON 2MG/ML, 2ML IVPush ONE ×2 (15:30→16:30)
[2020-10-28] MEDS ORDERED: MORPHINE SULFATE 4 MG/ML, 1ML IVPush PRN (15:30)
[2020-10-28] MEDS ORDERED: MORPHINE SULFATE 4 MG/ML, 1ML ONE (15:33)
[2020-10-28] MEDS ORDERED: ONDANSETRON 2MG/ML, 2ML ONE ×2 (15:34→18:05)
[2020-10-28] MEDS ORDERED: HYDROmorphone 1 MG/ML, 1ML INJ IV ONE ×2 (16:30→18:00)
[2020-10-28] MEDS ORDERED: SODIUM CHLORIDE FLUSH 10ML SYR IVF ONE (16:30)
[2020-10-28] MEDS ORDERED: HYDROmorphone 1 MG/ML, 1ML INJ ONE ×2 (16:38→18:05)
--- NOTE | 2020-10-28 16:50 | NUR ---
PT CAME IN CO NVD AND EPIGASTRIC ABD PAIN SINCE WEDNESDAY. WEDNESDAY WAS HER LAST ROUND OF CHEMO AT THIS POINT. PT HAS COLON CANCER WITH METS. PT RESTING IN [place]. MEDICATED PER JUL. EKG COMPLETE
[2020-10-28 16:58] LABS: BASOPHILS % (AUTO) 1 % (0-1); EOSINOPHILS % (AUTO) 3 % (1-7); LYMPHOCYTES % (AUTO) 36 % (22-44); MEAN CORPUSCULAR HEMOGLOBIN 28.8 pg (27.0-34.8); MEAN CORPUSCULAR HGB CONC 33.9 g/dL (32.4-35.8); MEAN PLATELET VOLUME 8.7 fL (7.4-10.4); MONOCYTES % (AUTO) 7 % (2-9); NEUTROPHILS % (AUTO) 53 % (42-75); PLATELET COUNT 180 x10^3/uL (130-400); RED BLOOD COUNT 4.82 x10^6/uL (3.82-5.3); RED CELL DISTRIBUTION WIDTH 17.6 % (9.6-15.2)
[2020-10-28 17:07] LABS: ALANINE AMINOTRANSFERASE 17 U/L (12-78); ALBUMIN 3.6 g/dL (3.4-5.0); ANION GAP 7 mmol/L (5-15); CALCIUM 8.9 mg/dL (8.5-10.1); CHLORIDE 108 mmol/L (98-107); CREATININE 0.72 mg/dL (0.55-1.02)
[2020-10-28 17:09] LABS: ALKALINE PHOSPHATASE 88 U/L (45-117); BILIRUBIN,TOTAL 2.4 mg/dL (0.2-1.0); TOTAL PROTEIN 6.8 g/dL (6.4-8.2)
[2020-10-28 18:08] VITALS: BP 155/71
== END 2020-10-28 19:10 | disposition home or self-care (01) ==
LOC: ED 16:49
DX: R19.7 Diarrhea, unspecified (principal); T50.995A Adverse effect of other drugs, medicaments and biological substances, initial encounter; R94.31 Abnormal electrocardiogram [ECG] [EKG]; Z85.038 Personal history of other malignant neoplasm of large intestine; Y92.9 Unspecified place or not applicable
CPT/HCPCS: 36415; 80053; 85025; 93005; 96361; 96374; 96375; 96376; 99284; J1170; J2405; J7030

== ENCOUNTER → 2020-11-18 | Outpatient (CLI) | payer MEDICARE, MEDICAID ==
[~2020-11-18] MED LIST changes: +OMNIPAQUE 350 MG/ML, 100ML BOTTLE ONE
== END | disposition home or self-care (01) ==
LOC: RAD 10:23
PROVIDERS: ATTEND Specialist
DX: C18.4 Malignant neoplasm of transverse colon (principal); N83.201 Unspecified ovarian cyst, right side
CPT/HCPCS: 71260; 74177; 93970; Q9967

== ENCOUNTER 2020-12-20 09:26 | Emergency (ER) | payer MEDICARE, MEDICAID ==
[~2020-12-20] VITALS: Ht 165.1 cm; Wt 78.0 kg
[~2020-12-20 09:26] MED LIST changes: -OMNIPAQUE 350 MG/ML, 100ML BOTTLE ONE
[2020-12-20] MEDS ORDERED: ONDANSETRON 2MG/ML, 2ML ONE (10:13)
[2020-12-20] MEDS ORDERED: HYDROmorphone 1 MG/ML, 1ML INJ ONE ×2 (10:13→11:34)
--- NOTE | 2020-12-20 10:24 | NUR ---
pt w chronic abd pain r/t colorectal ca stg 4, pain worse last couple weeks. iv/meds per jul. polly at bedside. vss. nausea, no vomiting (cant dt surg) and diarrhea, but also has diarrhea rt chemo. call ceballos. pt w labile mood and crying and groaning a lot. as
[2020-12-20] MEDS ORDERED: ONDANSETRON 2MG/ML, 2ML IVPush ONE (10:30)
[2020-12-20] MEDS ORDERED: HYDROmorphone 1 MG/ML, 1ML INJ IV ONE ×2 (10:30→12:00)
[2020-12-20] MEDS ORDERED: SODIUM CHLORIDE FLUSH 10ML SYR IVF ONE (11:00)
[2020-12-20 12:13] LABS: BASOPHILS % (AUTO) 1 % (0-1); EOSINOPHILS % (AUTO) 2 % (1-7); LYMPHOCYTES % (AUTO) 28 % (22-44); MEAN CORPUSCULAR HEMOGLOBIN 29.4 pg (27.0-34.8); MEAN CORPUSCULAR HGB CONC 33.4 g/dL (32.4-35.8); MEAN PLATELET VOLUME 8.5 fL (7.4-10.4); MONOCYTES % (AUTO) 11 % (2-9); NEUTROPHILS % (AUTO) 59 % (42-75); PLATELET COUNT 201 x10^3/uL (130-400); RED CELL DISTRIBUTION WIDTH 17.1 % (9.6-15.2)
--- NOTE | 2020-12-20 12:17 | NUR ---
iv l side infilt. R hand piv est, labs sent, katerinaid per jul. call lin. as
[2020-12-20 12:38] LABS: ALBUMIN 3.4 g/dL (3.4-5.0); CALCIUM 9.3 mg/dL (8.5-10.1); CHLORIDE 107 mmol/L (98-107)
[2020-12-20 12:42] LABS: ALANINE AMINOTRANSFERASE 18 U/L (12-78); ALKALINE PHOSPHATASE 91 U/L (45-117); ANION GAP 4 mmol/L (5-15); BILIRUBIN,TOTAL 1.6 mg/dL (0.2-1.0); CREATININE 0.68 mg/dL (0.55-1.02)
--- NOTE | 2020-12-20 13:49 | NUR ---
Patient given discharge instructions and they have confirmed that they understand the instructions. Patient ambulatory with steady gait.
[2020-12-20 13:50] VITALS: BP 101/60
== END 2020-12-20 13:51 | disposition home or self-care (01) ==
LOC: ED 11:05
DX: R10.84 Generalized abdominal pain (principal); C18.9 Malignant neoplasm of colon, unspecified; J44.9 Chronic obstructive pulmonary disease, unspecified; G43.909 Migraine, unspecified, not intractable, without status migrainosus
CPT/HCPCS: 36415; 71045; 80053; 85025; 93005; 96374; 96375; 96376; 99285; J1170; J2405